=== PATIENT | male | born 1970 | race Caucasian/White ===

== ENCOUNTER 2024-10-03 18:16 | Emergency (ER) | payer OTHER ==
[~2024-10-03] VITALS: Ht 172.7 cm; Wt 85.0 kg
[2024-10-03 18:29] VITALS: O2SAT 100
[2024-10-03] MEDS ORDERED: BUPR1FIL3 SL ×2 (20:08→21:33)
[2024-10-03 20:17] VITALS: BP 131/104; PULSE 95; RESP 18; TEMP 37.2; O2SAT 100
== END 2024-10-03 20:20 | disposition home or self-care (01) ==
LOC: ER 18:16
DX: Z76.0 Encounter for issue of repeat prescription (principal); I10 Essential (primary) hypertension; Z91.148 Patient's other noncompliance with medication regimen for other reason
CPT/HCPCS: 99281